=== PATIENT | female | born 1965 | race Caucasian/White ===

== ENCOUNTER 2021-03-23 08:58 | Inpatient (IN) ==
[2021-03-23] MEDS ORDERED: Isovue-370 500 ML BOTTLE IVP ONE (09:26)
[2021-03-23] MEDS ORDERED: 0.9 % Sodium Chloride 1,000 ML IVC STA (09:27)
[2021-03-23] MEDS ORDERED: Ondansetron 4 MG/2 ML VIAL IVP STA (09:27)
[2021-03-23 09:59] LABS: Basophils % 0.2 %; Eosinophils % 0.1 %; Hematocrit 30.5 % (35.3-44.9); Hemoglobin 9.7 g/dL (11.5-15.4); Immature Granulocytes % 1.4 % (0-4); Lymphocytes # 1.2 K/mcL (0.6-4.6); Lymphocytes % 8.1 %; Mean Corpuscular HGB Conc 31.8 g/dL (31.6-35.5); Mean Platelet Volume 9.2 fL (9.4-12.4); Monocytes # 0.9 K/mcL (0.0-1.3); Monocytes % 5.7 %; Neutrophils # 12.7 K/mcL (1.6-8.9); Nucleated Red Blood Cells 0.1 /100 WBC (0); Platelet Count 669 K/mcL (140-400); Red Blood Count 3.35 M/mcL (3.82-4.97); Segmented Neutrophils % 84.5 %
[2021-03-23 10:17] LABS: Alanine Aminotransferase 11 Units/L (7-52); Albumin 3.3 g/dL (3.5-5.7); Albumin/Globulin Ratio 0.7 (1.1-2.2); Alkaline Phosphatase 121 Units/L (34-104); Aspartate Amino Transferase 13 Units/L (13-39); BUN/Creatinine Ratio 17 (6-26); Bilirubin,Direct 0.1 mg/dL (0.0-0.2); Bilirubin,Indirect 0.5 mg/dL (0.0-1.0); Bilirubin,Total 0.6 mg/dL (0.3-1.0); Blood Urea Nitrogen 11 mg/dL (6-20); Calcium 9.7 mg/dL (8.6-10.3); Carbon Dioxide 26 mEq/L (23-29); Chloride 97 mEq/L (98-107); Globulin 4.9 g/dL (2.4-3.5); Glucose 207 mg/dL (70-105); Lipase 22 Units/L (11-82); Osmolality,Calculated 277 (280-300); Potassium 4.3 mEq/L (3.5-5.1); Sodium 131 mEq/L (136-145); Total Protein 8.2 g/dL (6.4-8.9); eGFR For African Americans > 60 (> 60); eGFR For Non-African Americans > 60 (> 60)
[2021-03-23] MEDS ORDERED: Metoclopramide 10 MG/2 ML VIAL IVP ONE (10:53)
[2021-03-23] MEDS ORDERED: Piperacillin/Tazobactam 3.375 GM in 0.9 % Sodium Chloride Mini Bag 100 ML IVPB ONE (11:00)
[2021-03-23] MEDS ORDERED: Acetaminophen 325 MG TABLET PO PRN (13:43)
[2021-03-23] MEDS ORDERED: D5% in Water 1,000 ML IVC PRN (13:45)
[2021-03-23] MEDS ORDERED: Dextrose Gel 15 GM/37.5 ML TUBE PO PRN ×2 (13:45)
[2021-03-23] MEDS ORDERED: *HR* Dextrose 50 % in Water (Vial) 50 ML VIAL IVP PRN (13:45)
[2021-03-23 14:25] LABS: INR 1.2; Prothrombin Time 13.9 Seconds (9.4-12.1)
[2021-03-23] MEDS ORDERED: *HR* Heparin 5,000 UNIT/ML VIAL IVP ONE (14:51)
[2021-03-23] MEDS ORDERED: *HR* Heparin 5,000 UNIT/ML VIAL IVP PRN (14:51)
[2021-03-23] MEDS ORDERED: Heparin 25,000UNIT/250ML 1/2NS 25,000 UNIT/250 ML IV.SOLN IVC SCH (15:00)
[2021-03-23] MEDS: Metoclopramide 10 MG/2 ML VIAL IVP PRN ×2 (15:51→23:56)
[2021-03-23] MEDS: 0.9 % Sodium Chloride 1,000 ML IVC SCH (15:53)
[2021-03-23 16:46] LABS: Hematocrit 30.5 % (35.3-44.9); Hemoglobin 9.6 g/dL (11.5-15.4); Mean Corpuscular HGB Conc 31.5 g/dL (31.6-35.5); Mean Corpuscular Hemoglobin 28.9 pg (28.0-33.3); Mean Corpuscular Volume 91.9 fL (83.0-100.0); Mean Platelet Volume 9.1 fL (9.4-12.4); Platelet Count 667 K/mcL (140-400); Red Blood Count 3.32 M/mcL (3.82-4.97); Red Cell Distribution Width 13.3 % (11.5-14.5); White Blood Count 12.2 K/mcL (4.3-11.1)
[2021-03-23] MEDS: Heparin 25,000UNIT/250ML 1/2NS 25,000 UNIT/250 ML IV.SOLN IVC SCH (16:47)
[2021-03-23] MEDS: Insulin LISPRO 300 UNITS/3 ML VIAL SUBQ SCH ×2 (16:49→23:52)
[2021-03-23 16:52] LABS: Heparin anti-factor XA UFH 0.25 IU/mL (0.30-0.70); INR 1.1; Prothrombin Time 12.7 Seconds (9.4-12.1)
[2021-03-23] MEDS ORDERED: Piperacillin/Tazobactam 3.375 GM in 0.9 % Sodium Chloride Mini Bag 100 ML IVPB SCH (20:00)
[2021-03-23] MEDS: Ondansetron 4 MG/2 ML VIAL IVP PRN (20:44)
[2021-03-23] MEDS: *HR* Heparin 5,000 UNIT/ML VIAL IVP PRN (23:52)
[2021-03-24] MEDS ORDERED: Ketorolac 15 MG/ML VIAL IVP ONE (00:07)
[2021-03-24] MEDS: Piperacillin/Tazobactam 3.375 GM in 0.9 % Sodium Chloride Mini Bag 100 ML IVPB SCH ×3 (03:27→19:56)
[2021-03-24] MEDS: Ondansetron 4 MG/2 ML VIAL IVP PRN (03:48)
[2021-03-24] MEDS: Insulin LISPRO 300 UNITS/3 ML VIAL SUBQ SCH ×3 (05:31→16:46)
[2021-03-24 07:24] LABS: Hematocrit 28.2 % (35.3-44.9); Hemoglobin 8.5 g/dL (11.5-15.4); Mean Corpuscular HGB Conc 30.1 g/dL (31.6-35.5); Mean Corpuscular Hemoglobin 28.1 pg (28.0-33.3); Mean Corpuscular Volume 93.1 fL (83.0-100.0); Mean Platelet Volume 9.3 fL (9.4-12.4); Platelet Count 608 K/mcL (140-400); Red Blood Count 3.03 M/mcL (3.82-4.97); Red Cell Distribution Width 13.3 % (11.5-14.5); White Blood Count 13.9 K/mcL (4.3-11.1)
[2021-03-24 07:48] LABS: BUN/Creatinine Ratio 18 (6-26); Blood Urea Nitrogen 11 mg/dL (6-20); Calcium 8.9 mg/dL (8.6-10.3); Carbon Dioxide 20 mEq/L (23-29); Chloride 104 mEq/L (98-107); Glucose 163 mg/dL (70-105); Magnesium 1.7 mg/dL (1.6-2.6); Osmolality,Calculated 281 (280-300); Phosphorous 2.3 mg/dL (2.7-4.5); Potassium 4.1 mEq/L (3.5-5.1); Sodium 134 mEq/L (136-145); eGFR For African Americans > 60 (> 60); eGFR For Non-African Americans > 60 (> 60)
[2021-03-24] MEDS: *HR* Heparin 5,000 UNIT/ML VIAL IVP PRN (07:58)
[2021-03-24] MEDS: Metoclopramide 10 MG/2 ML VIAL IVP PRN ×2 (10:17→20:13)
[2021-03-24 11:24] LABS: Basophils % 0.1 %; Eosinophils # 0.1 K/mcL (0.0-0.6); Eosinophils % 0.7 %; Immature Granulocytes % 1.2 % (0-4); Lymphocytes # 0.8 K/mcL (0.6-4.6); Monocytes # 0.8 K/mcL (0.0-1.3); Monocytes % 5.7 %; Neutrophils # 11.9 K/mcL (1.6-8.9); Segmented Neutrophils % 86.3 %
[2021-03-24] MEDS ORDERED: Ondansetron 4 MG/2 ML VIAL IVP PRN (12:37)
[2021-03-24] MEDS: Heparin 25,000UNIT/250ML 1/2NS 25,000 UNIT/250 ML IV.SOLN IVC SCH (13:24)
[2021-03-24] MEDS: Gabapentin 300 MG CAPSULE PO SCH ×2 (14:30→19:55)
[2021-03-24] MEDS: 0.9 % Sodium Chloride 1,000 ML IVC SCH ×2 (18:22→18:24)
[2021-03-24 19:34] LABS: Hematocrit 29.4 % (35.3-44.9); Hemoglobin 8.9 g/dL (11.5-15.4)
[2021-03-24] MEDS: atenoloL 50 MG TABLET PO SCH (19:55)
[2021-03-25] MEDS: Insulin LISPRO 300 UNITS/3 ML VIAL SUBQ SCH ×4 (00:32→16:27)
[2021-03-25 01:25] LABS: Eosinophils % 2.2 %; Hematocrit 27.7 % (35.3-44.9); Hemoglobin 8.4 g/dL (11.5-15.4); Immature Granulocytes % 1.6 % (0-4); Lymphocytes % 10.2 %; Mean Corpuscular HGB Conc 30.3 g/dL (31.6-35.5); Mean Corpuscular Volume 92.3 fL (83.0-100.0); Mean Platelet Volume 9.1 fL (9.4-12.4); Monocytes % 7.1 %; Platelet Count 545 K/mcL (140-400); Red Cell Distribution Width 13.3 % (11.5-14.5); Segmented Neutrophils % 78.6 %
[2021-03-25 01:26] LABS: Basophils % 0.3 %; Eosinophils # 0.3 K/mcL (0.0-0.6); Lymphocytes # 1.2 K/mcL (0.6-4.6); Monocytes # 0.9 K/mcL (0.0-1.3); Neutrophils # 9.4 K/mcL (1.6-8.9)
[2021-03-25 01:49] LABS: Alanine Aminotransferase 7 Units/L (7-52); Albumin 2.9 g/dL (3.5-5.7); Albumin/Globulin Ratio 0.8 (1.1-2.2); Alkaline Phosphatase 88 Units/L (34-104); Aspartate Amino Transferase 11 Units/L (13-39); BUN/Creatinine Ratio 14 (6-26); Bilirubin,Total 0.4 mg/dL (0.3-1.0); Blood Urea Nitrogen 8 mg/dL (6-20); Calcium 8.8 mg/dL (8.6-10.3); Carbon Dioxide 20 mEq/L (23-29); Chloride 104 mEq/L (98-107); Globulin 3.8 g/dL (2.4-3.5); Glucose 225 mg/dL (70-105); Magnesium 1.7 mg/dL (1.6-2.6); Osmolality,Calculated 279 (280-300); Phosphorous 1.8 mg/dL (2.7-4.5); Potassium 3.8 mEq/L (3.5-5.1); Sodium 132 mEq/L (136-145); Total Protein 6.7 g/dL (6.4-8.9); eGFR For African Americans > 60 (> 60); eGFR For Non-African Americans > 60 (> 60)
[2021-03-25 01:51] LABS: % Iron Saturation 11 % (15-50); Iron 30 mcg/dL (50-170); Transferrin 198 mg/dL (203-362)
[2021-03-25 02:04] LABS: Ferritin 144 ng/mL (10-120)
[2021-03-25 02:09] LABS: Folate 11.6 ng/mL (3.0-16.0)
[2021-03-25] MEDS: Piperacillin/Tazobactam 3.375 GM in 0.9 % Sodium Chloride Mini Bag 100 ML IVPB SCH ×3 (03:52→20:38)
[2021-03-25] MEDS: Heparin 25,000UNIT/250ML 1/2NS 25,000 UNIT/250 ML IV.SOLN IVC SCH ×2 (04:31→20:39)
[2021-03-25] MEDS: atenoloL 50 MG TABLET PO SCH ×2 (08:00→20:38)
[2021-03-25] MEDS: hydroCHLOROthiazide 25 MG TABLET PO SCH (08:00)
[2021-03-25] MEDS: Gabapentin 300 MG CAPSULE PO SCH ×3 (08:00→20:38)
[2021-03-25 10:02] LABS: Adenovirus Not Detected (Not Detect); Bordetella Pertussis Not Detected (Not Detect); Chlamydophila pneumoniae Not Detected (Not Detect); Coronavirus 229E Not Detected (Not Detect); Coronavirus HKU1 Not Detected (Not Detect); Coronavirus NL63 Not Detected (Not Detect); Coronavirus OC43 Not Detected (Not Detect); Human Metapneumovirus Not Detected (Not Detect); Human Rhinovirus/Enterovirus Not Detected (Not Detect); Influenza A Subtype 2009 H1 Not Detected (Not Detect); Influenza B Not Detected (Not Detect); Mycoplasma pneumoniae Not Detected (Not Detect); Parainfluenza Virus 1 Not Detected (Not Detect); Parainfluenza Virus 2 Not Detected (Not Detect); Parainfluenza Virus 3 Not Detected (Not Detect); Parainfluenza Virus 4 Not Detected (Not Detect); Respiratory Syncytial Virus Not Detected (Not Detect); SARS-CoV-2 Not Detected (Not Detect)
[2021-03-25] MEDS ORDERED: *HR* Succinylcholine 200 MG/10 ML VIAL IVP ONE ×2 (10:31→12:03)
[2021-03-25] MEDS ORDERED: Lidocaine -MPF 2% 2 ML VIAL ONE ×2 (10:31→12:03)
[2021-03-25] MEDS ORDERED: Ondansetron 4 MG/2 ML VIAL ONE ×2 (10:31→12:03)
[2021-03-25] MEDS ORDERED: *HR* Midazolam HCl 2 MG/2 ML VIAL ONE ×2 (10:32→12:04)
[2021-03-25] MEDS ORDERED: *HR* Propofol 200 MG/20 ML VIAL IVP ONE ×3 (10:32→14:49)
[2021-03-25] MEDS ORDERED: Lidocaine -MPF 4% 5 ML AMPUL ONE ×2 (10:32→12:07)
[2021-03-25] MEDS: Metoclopramide 10 MG/2 ML VIAL IVP PRN (10:35)
[2021-03-25] MEDS ORDERED: Ondansetron 4 MG/2 ML VIAL IVP PRN (12:45)
[2021-03-25] MEDS ORDERED: *HR* HYDROmorphone (PF) 1 MG/ML SYRINGE IVP PRN (12:45)
[2021-03-25] MEDS ORDERED: *HR* FentaNYL (PF) 100 MCG/2 ML VIAL IVP PRN (12:45)
[2021-03-25] MEDS ORDERED: Naloxone 0.4 MG/ML INJ IVP PRN (12:45)
[2021-03-25] MEDS ORDERED: Albuterol 2.5 MG/3 ML NEBULIZER IH PRN (12:45)
[2021-03-25] MEDS ORDERED: Nitroglycerin 0.4 MG TAB.SUBL SL PRN (12:45)
[2021-03-25] MEDS ORDERED: *HR* FentaNYL (PF) 100 MCG/2 ML VIAL ONE ×2 (13:18→14:37)
[2021-03-25] MEDS ORDERED: Indomethacin 50 MG SUPP.RECT RC ONE (14:44)
[2021-03-25] MEDS: 0.9 % Sodium Chloride 1,000 ML IVC SCH (20:54)
[2021-03-26] MEDS: Insulin LISPRO 300 UNITS/3 ML VIAL SUBQ SCH ×4 (00:36→17:30)
[2021-03-26] MEDS: 0.9 % Sodium Chloride 1,000 ML IVC SCH (00:39)
[2021-03-26] MEDS: Piperacillin/Tazobactam 3.375 GM in 0.9 % Sodium Chloride Mini Bag 100 ML IVPB SCH ×3 (04:29→20:19)
[2021-03-26 05:40] LABS: Hematocrit 25.2 % (35.3-44.9); Hemoglobin 7.7 g/dL (11.5-15.4); Mean Corpuscular HGB Conc 30.6 g/dL (31.6-35.5); Mean Corpuscular Hemoglobin 27.8 pg (28.0-33.3); Platelet Count 493 K/mcL (140-400); Red Blood Count 2.77 M/mcL (3.82-4.97); Red Cell Distribution Width 13.3 % (11.5-14.5); White Blood Count 11.8 K/mcL (4.3-11.1)
[2021-03-26 06:01] LABS: Alanine Aminotransferase 8 Units/L (7-52); Albumin 2.8 g/dL (3.5-5.7); Albumin/Globulin Ratio 0.8 (1.1-2.2); Alkaline Phosphatase 88 Units/L (34-104); Aspartate Amino Transferase 8 Units/L (13-39); BUN/Creatinine Ratio 14 (6-26); Bilirubin,Total 0.4 mg/dL (0.3-1.0); Blood Urea Nitrogen 9 mg/dL (6-20); Calcium 8.5 mg/dL (8.6-10.3); Carbon Dioxide 20 mEq/L (23-29); Chloride 107 mEq/L (98-107); Globulin 3.7 g/dL (2.4-3.5); Glucose 267 mg/dL (70-105); Osmolality,Calculated 286 (280-300); Potassium 3.6 mEq/L (3.5-5.1); Sodium 134 mEq/L (136-145); Total Protein 6.5 g/dL (6.4-8.9); eGFR For African Americans > 60 (> 60); eGFR For Non-African Americans > 60 (> 60)
[2021-03-26] MEDS: Gabapentin 300 MG CAPSULE PO SCH ×3 (07:27→20:20)
[2021-03-26] MEDS: atenoloL 50 MG TABLET PO SCH ×2 (07:27→20:20)
[2021-03-26] MEDS: hydroCHLOROthiazide 25 MG TABLET PO SCH (07:27)
[2021-03-26 07:55] LABS: Amylase 33 Units/L (29-103); Bilirubin,Direct 0.2 mg/dL (0.0-0.2); Bilirubin,Indirect 0.2 mg/dL (0.0-1.0); Lipase 123 Units/L (11-82)
[2021-03-26] MEDS: Metoclopramide 10 MG/2 ML VIAL IVP PRN (08:54)
[2021-03-26] MEDS ORDERED: Heparin 1,000 UNITS/500 mL 500 ML ONE (09:08)
[2021-03-26] MEDS ORDERED: 0.9 % Sodium Chloride 500 ML ONE (09:08)
[2021-03-26] MEDS ORDERED: *HR* FentaNYL (PF) 100 MCG/2 ML VIAL IVP ONE ×3 (10:02→11:54)
[2021-03-26] MEDS ORDERED: *HR* Midazolam HCl 2 MG/2 ML VIAL IVP ONE ×3 (10:02→11:54)
[2021-03-26] MEDS ORDERED: 0.9 % Sodium Chloride 1,000 ML ONE (10:18)
[2021-03-26] MEDS ORDERED: *HR* Midazolam HCl 2 MG/2 ML VIAL ONE ×2 (11:15→11:55)
[2021-03-26] MEDS ORDERED: *HR* FentaNYL (PF) 100 MCG/2 ML VIAL ONE ×2 (11:15→11:55)
[2021-03-26] MEDS ORDERED: Isovue-300 50ML VIAL IVP ONE ×2 (12:24→12:25)
[2021-03-26 13:03] LABS: Hematocrit 27.5 % (35.3-44.9); Hemoglobin 8.3 g/dL (11.5-15.4)
[2021-03-26] MEDS: Heparin 25,000UNIT/250ML 1/2NS 25,000 UNIT/250 ML IV.SOLN IVC SCH (17:56)
[2021-03-26] MEDS: *HR* Heparin 5,000 UNIT/ML VIAL IVP PRN (20:42)
[2021-03-27] MEDS: Insulin LISPRO 300 UNITS/3 ML VIAL SUBQ SCH ×5 (00:48→19:05)
[2021-03-27] MEDS: 0.9 % Sodium Chloride 1,000 ML IVC SCH ×3 (01:32→15:30)
[2021-03-27 03:05] LABS: Hematocrit 24.9 % (35.3-44.9); Hemoglobin 7.6 g/dL (11.5-15.4); Mean Corpuscular HGB Conc 30.5 g/dL (31.6-35.5); Mean Corpuscular Hemoglobin 28.3 pg (28.0-33.3); Mean Corpuscular Volume 92.6 fL (83.0-100.0); Mean Platelet Volume 8.9 fL (9.4-12.4); Platelet Count 416 K/mcL (140-400); Red Blood Count 2.69 M/mcL (3.82-4.97); Red Cell Distribution Width 13.8 % (11.5-14.5); White Blood Count 8.9 K/mcL (4.3-11.1)
[2021-03-27 03:24] LABS: Alanine Aminotransferase 12 Units/L (7-52); Albumin 2.7 g/dL (3.5-5.7); Albumin/Globulin Ratio 0.8 (1.1-2.2); Alkaline Phosphatase 83 Units/L (34-104); Aspartate Amino Transferase 18 Units/L (13-39); BUN/Creatinine Ratio 10 (6-26); Bilirubin,Total 0.4 mg/dL (0.3-1.0); Blood Urea Nitrogen 6 mg/dL (6-20); Calcium 8.5 mg/dL (8.6-10.3); Carbon Dioxide 21 mEq/L (23-29); Chloride 108 mEq/L (98-107); Globulin 3.2 g/dL (2.4-3.5); Glucose 202 mg/dL (70-105); Osmolality,Calculated 285 (280-300); Potassium 3.2 mEq/L (3.5-5.1); Sodium 136 mEq/L (136-145); Total Protein 5.9 g/dL (6.4-8.9); eGFR For African Americans > 60 (> 60); eGFR For Non-African Americans > 60 (> 60)
[2021-03-27] MEDS: Piperacillin/Tazobactam 3.375 GM in 0.9 % Sodium Chloride Mini Bag 100 ML IVPB SCH ×3 (03:42→19:51)
[2021-03-27] MEDS: Heparin 25,000UNIT/250ML 1/2NS 25,000 UNIT/250 ML IV.SOLN IVC SCH (10:20)
[2021-03-27] MEDS: Gabapentin 300 MG CAPSULE PO SCH ×4 (10:42→19:51)
[2021-03-27] MEDS: *HR* Heparin 5,000 UNIT/ML VIAL IVP PRN (11:57)
[2021-03-27] MEDS: atenoloL 50 MG TABLET PO SCH ×3 (12:07→19:51)
[2021-03-27] MEDS: hydroCHLOROthiazide 25 MG TABLET PO SCH ×2 (12:07→12:19)
[2021-03-27] MEDS: Apixaban 5 MG TABLET PO SCH (19:52)
[2021-03-27] MEDS ORDERED: Insulin LISPRO 300 UNITS/3 ML VIAL SUBQ SCH (21:00)
[2021-03-28] MEDS: Piperacillin/Tazobactam 3.375 GM in 0.9 % Sodium Chloride Mini Bag 100 ML IVPB SCH (05:00)
[2021-03-28 05:10] LABS: Hematocrit 26.5 % (35.3-44.9); Hemoglobin 8.1 g/dL (11.5-15.4); Mean Corpuscular HGB Conc 30.6 g/dL (31.6-35.5); Mean Corpuscular Volume 91.7 fL (83.0-100.0); Mean Platelet Volume 9.1 fL (9.4-12.4); Platelet Count 364 K/mcL (140-400); Red Blood Count 2.89 M/mcL (3.82-4.97); Red Cell Distribution Width 14.1 % (11.5-14.5); White Blood Count 7.1 K/mcL (4.3-11.1)
[2021-03-28 05:28] LABS: Alanine Aminotransferase 10 Units/L (7-52); Albumin 2.9 g/dL (3.5-5.7); Albumin/Globulin Ratio 0.8 (1.1-2.2); Alkaline Phosphatase 93 Units/L (34-104); Aspartate Amino Transferase 10 Units/L (13-39); BUN/Creatinine Ratio 8 (6-26); Bilirubin,Total 0.4 mg/dL (0.3-1.0); Blood Urea Nitrogen 5 mg/dL (6-20); Calcium 8.9 mg/dL (8.6-10.3); Carbon Dioxide 23 mEq/L (23-29); Chloride 106 mEq/L (98-107); Globulin 3.5 g/dL (2.4-3.5); Glucose 257 mg/dL (70-105); Osmolality,Calculated 286 (280-300); Potassium 3.1 mEq/L (3.5-5.1); Sodium 135 mEq/L (136-145); Total Protein 6.4 g/dL (6.4-8.9); eGFR For African Americans > 60 (> 60); eGFR For Non-African Americans > 60 (> 60)
[2021-03-28 07:29] VITALS: BP 164/63
[2021-03-28] MEDS: Gabapentin 300 MG CAPSULE PO SCH (08:13)
[2021-03-28] MEDS: Apixaban 5 MG TABLET PO SCH (08:14)
[2021-03-28] MEDS: atenoloL 50 MG TABLET PO SCH (08:14)
[2021-03-28] MEDS: hydroCHLOROthiazide 25 MG TABLET PO SCH (08:14)
[2021-03-28] MEDS: Insulin LISPRO 300 UNITS/3 ML VIAL SUBQ SCH (08:14)
== END 2021-03-28 12:57 | disposition home or self-care (01) | DRG 862 ==
LOC: EMEROOARM 08:58 → 3BNU 08:58 → SUATTDRO 13:49 → 3BNU 15:01
PROVIDERS: ADMIT Internal Medicine; ATTEND Registered Nurse
PROC: IRDRAIN (2021-03-26 11:00)